=== PATIENT | male | born 2005 | race Caucasian/White ===

== ENCOUNTER 2025-02-06 14:10 | Emergency (ER) | payer BC, SELFPAY ==
[2025-02-06 14:13] VITALS: BP 154/96; PULSE 86; TEMP 37.3; O2SAT 98; BMI 21.7
--- NOTE | 2025-02-06 14:36 | XR_ITS ---
The [address] [address] Patient Name: NHI JACK MRN: [facility]:[id number] date: 2005 Sex: M Assigned Patient Location: ER Current Patient Location: ER Accession/Order Number: [id number] Exam Date: 02/06/2025 15:04 Report Date: 02/06/2025 15:05 At the request of: AJ TATUM MD Procedure: XR chest 2V PA AND LATERAL CHEST: CLINICAL HISTORY: chest pain after trauma COMPARISON: None FINDINGS: Unremarkable cardiomediastinal silhouette. Lung clear. No effusion or pneumothorax XR/XR chest 2V IMPRESSION: NO ACUTE CARDIOPULMONARY ABNORMALITY. Impression dictated by: Lyle Sanchez M.D. 02/06/2025 3:05 PM Dictation Location: [place] [address] Electronically authenticated by: [id number] Y Date: 02/06/2025 15:05
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
== END 2025-02-06 15:34 | disposition home or self-care (01) ==
PROVIDERS: Emergency Provider Emergency Medicine
DX: S20.219A Contusion of unspecified front wall of thorax, initial encounter (principal); W50.0XXA Accidental hit or strike by another person, initial encounter; Y93.83 Activity, rough housing and horseplay
CPT/HCPCS: 71046; 99283